=== PATIENT | male | born 1945 | race Caucasian/White ===

== ENCOUNTER 2017-03-26 12:00 | Outpatient (CLI) | payer MEDICARE ==
[~2017-03-26] VITALS: Ht 177.8 cm; Wt 94.5 kg
--- NOTE | ~2017-03-26 | OP ---
PATIENT NAME: ERIKA HEARD MEDICAL RECORD: [id number] :41 LOCATION:D.CAT ADMISSION DATE: SURGEON: RANDY THOMPSON MD DATE OF OPERATION: 03/26/2017 PREOPERATIVE DIAGNOSES: 1. End-of-life pacemaker generator. 2. Coronary artery disease. 3. Hypertension. 4. Sick sinus syndrome. 5. Atrial fibrillation. POSTOPERATIVE DIAGNOSES: 1. End-of-life pacemaker generator. 2. Coronary artery disease. 3. Hypertension. 4. Sick sinus syndrome. 5. Atrial fibrillation. PROCEDURE: Right subclavian vein pacemaker generator exchange. SURGEON: Randy Thompson MD REPORT OF PROCEDURE: The patient's right chest was prepped and draped in sterile fashion. A 15 mL of 1% lidocaine with epinephrine was infused into the surrounding tissues. A skin incision was made overlying the pacemaker and we dissected down using electrocautery until the pacemaker was in vision. We then dissected around the pacemaker and we were able to eviscerated out of the wound. The stitch holding it in place, was then excised. The pacemaker was detached from the 2 leads and the 2 leads were checked and noted to be appropriately functioning. The new Medtronic pacemaker was inserted, this was placed into the subcutaneous pouch and sutured down with an 0 Tycron. The subcutaneous tissues were irrigated out with antibiotic solution and the subcutaneous tissues were then reapproximated with interrupted 3-0 Vicryls and the skin was closed with running subcutaneous 5-0 Monocryl and dressed appropriately. COMPLICATIONS: None. CONDITION: Stable. ANESTHESIA: Local MAC. BLOOD LOSS: Minimal. TRANSINT:[id number] Voice Confirmation ID: [id number] DOCUMENT ID: [id number] RANDY THOMPSON MD CC: JAM TROY MD [id number] DICTATION DATE: 03/26/17 1440 CELL POURER: 03/26/17 2249 DEP CLI 03/26/17 [place] [id number] [place] [id number]
--- NOTE | ~2017-03-26 | HEMODYNAMI ---
PATIENT:ERIKA HEARD MEDICAL RECORD: [id number] : 41 LOCATION:DSueCAT ADMISSION DATE: 03/26/17 Generatedon:03/26/201714:39 Patient name: ERIKA HEARD Patient #: [id number] SSN: : 1945 Date of study: 03/26/2017 Page: Of Hemodynamic Procedure Report Patient Data Patient Demographics Procedure consent was obtained First Name: ERIKA Gender: Male Last Name: ORQUIDEA : 1945 Middle Initial: R Age: 72 year(s) Patient #: [id number] Race: Unknown Additional ID: [id number] Contact details [address]: [address] [place] [address] State: [place] City: [place] Zip code: [address] Past Medical History Allergies Allergen Reaction Date Comments Reported Penicillins 03/26/2017 Codeine 03/26/2017 Other allergy 03/26/2017 Biaxin Admission Admission Data Admission Date: 03/26/2017 Admission Time: 12:00 Lab Results Lab Result Date: 03/26/2017 Lab Result Time: 0:00 Biochemistry Name Units Result Min Max Creatinine mg/dl 1.6 --(----)-* 0.6 1.3 CBC Name Units Result Min Max Hemoglobin g/dl 13.7 --(*---)-- 13.5 17.5 Procedure Procedure Types Cath Procedure Diagnostic Procedure PPM/ICD Permanent Pacer Generator Exg. Miscellaneous Procedures Moderate Sedation up to 15 minutes Procedure Description Procedure Date Procedure Date: 03/26/2017 Procedure Start Time: 13:46 Procedure Staff Name Function Dom Jang MD Assisting physician Shaun Robles MD Performing Physician Regis Costa RT Scrub Jacky Dick RN Nurse Jessie Merchant RT Monitor Procedure Data Cath Procedure Estimated blood loss: 5 ml Procedure Medications Medication Administration Route Dosage Vancomycin I.V.P.B 1 g Vancomycin Topical 1 g Irrigation Fentanyl I.V. 50 mcg Versed I.V. 1 mg Fentanyl I.V. 50 mcg Versed I.V. 1 mg Hemodynamics Rest HGB: 13.7 (g/dl) Heart Rate: 70 (bpm) Snapshots Pre Cath Intra NCS Post Cath Vital Signs Time Heart Resp SPO2 NIBP (mmHg) Rhythm Pain Sedation Rate (ipm) (%) Status Level (bpm) 14:03:10 79 17 96 164/108(134) NSR 0 (11) 10(A) , No pain 14:07:30 72 17 97 167/110(149) NSR 0 (11) 10(A) , No pain 14:11:50 82 18 97 163/97(142) NSR 0 (11) 10(A) , No pain 14:16:13 78 18 92 149/106(135) NSR 0 (11) 10(A) , No pain 14:20:29 64 18 93 160/99(140) NSR 0 (11) 9(A) , No pain 14:24:49 87 17 90 150/78(122) NSR 0 (11) 9(A) , No pain 14:30:06 60 17 90 171/89(122) NSR 0 (11) 9(A) , No pain 14:34:14 60 18 92 140/95(138) NSR 0 (11) 9(A) , No pain 14:38:30 77 9 93 159/95(141) NSR 0 (11) 9(A) , No pain Medications Time Medication Route Dose Verified Delivered Reason Notes Effective ness by by 14:06:08 Vancomycin I.V.P.B 1 g Jacky Jacky Per Kapil Dick RN physician RN 14:06:17 Vancomycin Topical 1 g Jacky Jacky Per Irrigation Kapil Dick RN physician RN 14:19:42 Fentanyl I.V. 50 Jacky Jacky for [facility] Kapil Dick RN sedation RN 14:19:50 Versed I.V. 1 mg Jacky Jacky for Kapil Dick RN sedation RN 14:25:01 Fentanyl I.V. 50 Jacky Arevaloy for flex Dick RN sedation RN 14:25:07 Versed I.V. 1 mg Jacky Jacky for Kapil Dick RN sedation aerospace products sales engineer Log Time Note 13:40:02 Jacky Dick RN sent for patient. Start room use. 13:49:03 Time tracking: Regular hours 13:49:07 Plan of Care:Hemodynamics will remain stable., Cardiac rhythm will remain stable., Comfort level will be maintained., Respiratory function will remain adequate., Patient/ family verbilizes understanding of procedure., Procedure tolerated without complication., Recovers from procedure without complications.. 13:49:30 Medtronic Adapta PPM Dual Generator opened to sterile field. 13:56:12 Patient received from Pre/Post Procedure Room to [facility] 3 Alert and oriented. Tansferred to table in Supine position. 13:56:13 Warm blankets applied, and adryan hugger turned on for patient comfort. 13:56:13 Correct patient and procedure confirmed by team. 13:56:14 Signed procedure consent form obtained from patient. 13:56:15 ECG and BP/O2 sat monitors applied to patient. 13:56:16 Full Disclosure recording started 14:01:54 Vital chart was started 14:02:02 Rhythm: paced 14:02:15 H&P Date Dictated: 03/25/2017 Within 30 days and on chart., H&P Addendum completed by physician on day of procedure. (MUST COMPLETE FOR ALL OUTPATIENTS). 14:02:16 Pre-procedure instructions explained to patient. 14:02:16 Pre-op teaching completed and patient verbalized understanding. 14:02:18 Family in waiting room. 14:02:19 Patient NPO since Midnight. 14:02:28 Patient allergic to Penicillins 14:02:37 Patient allergic to Codeine 14:02:49 Patient allergic to Other allergyBiaxin 14:04:27 Baseline sample Acquired. 14:04:30 Is the patient allergic to Iodine/contrast media? No. 14:04:34 Patient diabetic? No. 14:04:38 Previous problem with sedation/anesthesia? No ? 14:04:55 Is patient on blood thinner?Yes 14:05:10 ACC The patient was administered the following blood thiners within the last 24 hours: ACCPlavix 14:05:14 Snore? Yes 14:05:15 Sleep apnea? No 14:05:16 Deviated septum? No 14:05:16 Opens mouth fully? Yes 14:05:17 Sticks out tongue? Yes 14:05:19 Airway obstruction? No ? 14:05:21 Dentures? No ? 14:05:28 Patient pain scale 0/10 ?. 14:05:33 IV patent on arrival in left hand with 0.9% NaCl at [facility]. 14:06:08 Vancomycin 1 g I.V.P.B was administered by Jacky Dick RN; Per physician; 14:06:17 Vancomycin Irrigation 1 g Topical was administered by Jacky Dick RN; Per physician; 14:06:47 Lab Result : Creatinine 1.6 mg/dl 14:06:47 Lab Result : Hemoglobin 13.7 g/dl 14:06:52 Lab results completed and on chart. 14:06:59 Right chest area was prepped with chlora-prep and draped in sterile fashion 14:07:00 Alarms reviewed by R. N. 14:07:00 Sharps counted by scrub and verified by R.N. 14:07:06 Use device set Pacemaker Set 14:07:07 Mepilex Dressing opened to sterile field. 14:07:07 2.0 Ticron Multipack opened to sterile field. 14:07:08 3.0 Vicryl Multipack [id number] opened to sterile field. 14:07:10 5.0 Monocryl PS2 [id number] opened to sterile field. 14:14:54 Medtronic indirect sales representative Titus Rodriguez present for procedure. 14:15:11 Pre sharps counted by scrub and verified by RN: Sutures: 14 Sponges: 5 Stick needles: 0 Skin needles: 2 Blade: 1 Cautery: 1 14:15:17 Grounding pad site Left thigh. 14:15:19 Grounding pad site free from injury. 14:19:34 Final Timeout: patient, procedure, and site verified with staff and physician. All members of the team are in agreement. 14:19:36 Right chest site verified by team. 14:19:38 Physical assessment completed. ASA score P 2 - A patient with mild systemic disease as per Dom Jang MD. 14:19:41 Sedation plan: IV Moderate Sedation Versed, Fentanyl 14:19:42 Fentanyl 50 mcg I.V. was administered by Jacky Dick RN; for sedation; 14:19:50 Versed 1 mg I.V. was administered by Jacky Dick RN; for sedation; 14:19:53 Lidocaine 1% w/epi and Bupivacaine 0.5% to right subclavicular area by Dom Jang MD. 14:21:48 Incision made to right subclavicular area. 14:21:53 Generator pocket made/opened. 14:24:45 PPM Dual was removed.. 14:24:50 Ventricular lead tested. 14:25:01 Fentanyl 50 mcg I.V. was administered by Jacky Dick RN; for sedation; 14:25:07 Versed 1 mg I.V. was administered by Jacky Dick RN; for sedation; 14:25:22 Atrial lead tested. 14::42 PPM Dual was attached to lead(s) and inserted into pocket. 14:28:22 Generator was sutured in place with 2-0 ticron. 14:28:42 Subcutaneous closure was completed with 3-0 vicryl. 14:30:27 Parameters-- Generator: Mode: AAIR<=>DDDR. Lower Rate: 60bpm. Upper Rate: 130bpm. 14:31:01 Parameters--Ventricular P/R Wave: 5.6mV. Current: 0.7mA; Threshold: 0.3V; Impedence: 732OHMS. 14:31:21 Parameters--Atrial P/R Wave: 5.3mV. Current: 0.9mA; Threshold: 0.4V; Impedence: 569OHMS. 14:33:37 Skin closure was completed with 5-0 monocryl. 14:34:18 Rt Chest incision was dressed with Mepilex dressing. 14:34:23 Procedure ended.(Physican Out) 14:34:37 Sharps counted by scrub and verified by R.N. 14:35:12 Post sharps counted by scrub and verified by RN: Sutures: 14 Sponges: 5 Stick needles: 0 Skin needles: 2 Blade: 1 Cautery: 1 14:35:21 Insertion/operative site no bleeding no hematoma. 14:35:38 Post-procedure physical assessment completed. ASA score P 2 - A patient with mild systemic disease as per Dom Jang MD. 14:35:42 Post procedure rhythm: unchanged. 14:35:49 Estimated blood loss: 5 ml 14:35:50 Post procedure instruction explained to patient.Patient verbalizes understanding. 14:35:50 Patient needs reinforcement of post procedure teaching. 14:36:18 Procedure type changed to Cath procedure, Diagnostic procedure, PPM/ICD, Permanent Pacer Generator Exg., Miscellaneous Procedures, Moderate Sedation up to 15 minutes 14:36:23 See physician's report for complete and final results. 14:36:54 Procedure and supply charges have been captured, reviewed, submitted and are correct. 14:37:26 Vital chart was started 14:38:36 Vital chart was stopped 14:38:40 Report given to Pre/Post Procedure Room. 14:38:44 Patient transfered to Pre/Post Procedure Room with Stretcher. 14:38:51 End room use (Document Last) Device Usage Item Name Manufacture Quantity Catalog Hospital Part Current Minimal Lo t# / Number Charge Number Stock Stock Serial# Code Medtronic Medtronic 1 [id number] 5 NW [id number] Adapta Ex p. PPM Dual 8- 28-18 Generator Mepilex Cardinal 1 [id number] [id number] [id number] [id number] 5 Dressing Health 2.0 Ethicon 4 [id number] 69574 786624 5 Ticron Multipack 3.0 Ethicon 1 [id number] 132158 144152 5 Vicryl Multipack [id number] 5.0 Ethicon 1 [id number] [id number] 937957 [id number] 5 Monocryl PS2 Y495G Signature Audit [place] Stage Time Signature Unsigned Intra-Procedure 03/26/2017 Jessie 2:39:03 PM Counts RT(R) Signatures Monitor : Jessie Signature : Counts RT Date : Time : [facility] [address] [place] [address]
[2017-03-26] MEDS ORDERED: TENORMIN25 MG PO (12:25)
[2017-03-26] MEDS ORDERED: BUPROPION XL300 MG PO (12:25)
[2017-03-26] MEDS ORDERED: TRICOR145 MG PO (12:26)
[2017-03-26] MEDS ORDERED: PLAVIX75 MG PO (12:26)
[2017-03-26] MEDS ORDERED: FLUTICASONE PRO16 GM NASAL (12:26)
[2017-03-26] MEDS ORDERED: ZESTRIL40 MG PO (12:27)
[2017-03-26] MEDS ORDERED: GLUCOTROL ER2.5 MG PO (12:27)
[2017-03-26] MEDS ORDERED: LEVOTHYROXINE112 MCG PO (12:27)
[2017-03-26] MEDS ORDERED: HYDROCODONE-APA1 TAB PO (12:28)
[2017-03-26] MEDS ORDERED: ATIVAN2 MG PO (12:28)
[2017-03-26] MEDS ORDERED: CARDURA4 MG PO (12:29)
[2017-03-26] MEDS ORDERED: RISPERDAL0.5 MG PO (12:29)
[2017-03-26] MEDS ORDERED: OMEPRAZOLE20 M1 PO (12:29)
[2017-03-26 12:35] VITALS: BP 144/92; Ht 177.8 cm; Wt 94.5 kg
[2017-03-26 12:50] LABS: HEMATOCRIT 42.5 % (42.0-54.0); HEMOGLOBIN 13.7 g/dL (13.5-17.5); MCH 29.6 pg (26.0-34.0); MCHC 32.2 g/dL (31.0-37.0); MCV 91.8 fL (80.0-100.0); MEAN PLATELET VOLUME 10.4 fL (7.4-10.4); RBC 4.63 10x6/uL (4.20-6.10); RDW 13.6 % (11.5-14.5); WBC 5.7 10x3/uL (4.8-10.8)
[2017-03-26 13:02] LABS: CALCIUM 8.9 mg/dL (8.5-10.1); CARBON DIOXIDE 24.9 mmol/L (21.0-32.0); CREATININE - SERUM 1.6 mg/dL (0.6-1.3); POTASSIUM - SERUM 3.9 mmol/L (3.5-5.1)
[2017-03-26 13:03] LABS: INR 1.05 (0.85-1.17); PROTIME 13.5 SECONDS (11.6-15.0)
[2017-03-26 13:04] LABS: APTT 28.1 SECONDS (22.8-39.4)
--- NOTE | 2017-03-26 15:05 | NUR ---
2L NC, NO RESP DISTRESS NOTED. DIE MOUNTER SHOWS NSR, PACED @ 60. RIGHT UPPER CHEST DRSG CDI, NO BLEEDING NOTED. VSS. NO C/O AT THIS TIME. WILL CONTINUE TO MONITOR.
--- NOTE | 2017-03-26 15:35 | NUR ---
RESTING IN BED, AT BEDSIDE. 2L NC, NO RESP DISTRESS NOTED. RIGHT UPPER CHEST DRESSING CDI. NO C/O AT THIS TIME. VSS.
--- NOTE | 2017-03-26 16:15 | NUR ---
LEFT HAND PIV D/C'D WITH CATHETER INTACT, BAND AID TO SITE. UP TO BEDSIDE TO GET DRESSED.
--- NOTE | 2017-03-26 16:30 | NUR ---
DISCHARGE INSTRUCTIONS GIVEN, PT AND FAMILY VERBALZIED UNDERSTANDING. TAKEN OUT VIA WHEELCHAIR BY CATH IT INFRASTRUCTURE CONSULTANT. LEFT FACILITY WITH AND ALL PERSONAL BELONGINGS.
== END 2017-03-26 16:30 | disposition home or self-care (01) ==
LOC: D.CATH 12:00
PROVIDERS: Internal Medicine Interventional Cardiology
DX: Z45.010 Encounter for checking and testing of cardiac pacemaker pulse generator [battery] (principal); I25.10 Atherosclerotic heart disease of native coronary artery without angina pectoris; I10 Essential (primary) hypertension; I49.5 Sick sinus syndrome; I48.91 Unspecified atrial fibrillation

== ENCOUNTER → 2018-12-25 13:59 | Outpatient (CLI) | payer MEDICARE ==
[2017-03-26 12:35] VITALS: BMI 29.9
[~2018-12-25 13:59] MED LIST: ATIVAN2 MG PO; BUPROPION XL300 MG PO; CARDURA4 MG PO; FLUTICASONE PRO16 GM NASAL; GLUCOTROL ER2.5 MG PO; HYDROCODONE-APA1 TAB PO; LEVOTHYROXINE112 MCG PO; OMEPRAZOLE20 M1 PO; PLAVIX75 MG PO; RISPERDAL0.5 MG PO; TENORMIN25 MG PO; TRICOR145 MG PO; ZESTRIL40 MG PO
== END | disposition home or self-care (01) ==
LOC: D.CT 13:59
DX: R31.9 Hematuria, unspecified (principal)

== ENCOUNTER → 2020-02-01 10:25 | Outpatient (CLI) | payer MEDICARE ==
[2017-03-26 12:35] VITALS: BMI 29.9
--- NOTE | ~2020-02-01 | ST ---
PATIENT:ERIKA HEARD MEDICAL RECORD: [id number] SEX: M LOCATION:[facility] ORDER #: ADMISSION DATE: 02/01/20 AGE OF PATIENT: 74 REFERRING PHYSICIAN: INTERPRETING PHYSICIAN: ANITA POSADAS MD DATE OF SERVICE: 02/01/2020 PROCEDURE: Nuclear stress test. INDICATION: Angina and coronary artery disease, hypertension, shortness of breath. He was exercised on standard Lexiscan protocol with 33 mCi of sestamibi injected at peak stress, 11 mCi used previously for rest images. FINDINGS: Gated SPECT reveals a dilated cardiomyopathy, ejection fraction markedly reduced at 23% with decreased thickening and brightening throughout the inferior segments. SPECT imaging Cardiolite was used as myocardial perfusion agent. There is a fixed perfusion defect inferiorly, apically, and septally compatible with previous inferoapical inferoseptal myocardial infarction. There is no evidence of reversible ischemia. The remaining segments are with homogeneous uptake at rest and stress. OVERALL IMPRESSION: This is an abnormal, but stable nuclear stress test showing only a previous inferoapical myocardial infarction. No ongoing ischemia. TRANSINT:[id number] Voice Confirmation ID: [id number] DOCUMENT ID: [id number] ANITA POSADAS MD CC: WILFRID BLOOD [id number] DICTATION DATE: 02/03/20 1424 WHITE LEAD FILTERER: 02/04/20 0133 DEP CLI 02/01/20 [place] [id number] [place] [address]
--- NOTE | ~2020-02-01 | EC ---
PATIENT:ERIKA HEARD DATE OF SERVICE: 02/01/20 SEX: M MEDICAL RECORD: [id number] DATE OF : 41 LOCATION:[facility] AGE OF PATIENT: 74 ADMISSION DATE: 02/01/20 REFERRING PHYSICIAN: INTERPRETING PHYSICIAN: ANITA ROBLES MD ECHOCARDIOGRAM REPORT ECHO CHARGES 4 ECHO COMPLETE Date: 02/01/20 CLINICAL DIAGNOSIS: ANGINA/BRAY/SOB H/O HTN/CAD/PACEMAKER PLACMENT ECHOCARDIOGRAPHIC MEASUREMENTS (adult normal given) AC root (d.<3.7cm) 3.9 cm LV Septum d (<1.2 cm> 1.6 cm Valve Excursion 1.8 cm LV Septum (systole) 2.0 cm Left Atria (s.<4.0cm> 4.8 cm LVPW d(<1.2cm) 1.5 cm RV (d.<2.3cm) 2.7 cm LVPW (sytole) 2.0 cm LV diastole(<5.6CM) 7.7 cm MV E-F(>70mm/sec) cm LV systole 6.3 cm LVOT Diameter 2.1 cm MV exc.(>10mm) cm Est.ejection fraction (50-75%) % DOPPLER: LVIT cm/sec A cm/sec E 143 cm/sec LA cm/sec RVSP 30.0 mmHg LVOT 79.0 cm/sec AOP1/2T m/s Asc. Ao 146 cm/sec RVOT 81.0 cm/sec RA cm/sec PA 106 cm/sec AV Gradient Peak 8.5 mmHg AV Mean 4.6 mmHg AV Area 2.1 cm MV Gradient Peak 9.0 mmHg MV Mean 2.5 mmHg MV Area cm COMMENTS: OP - HC Pediatric Physician: Cricket [employer] Reproductive Endocrinologist: 1 Dr. Robles TAPE# PACS Pericardial Effusion Y DATE OF SERVICE: 02/01/2020 FINDINGS: 1. Left ventricular chamber size is severely dilated. Left ventricular systolic function is severely reduced. Overall ejection fraction 15% to 20%. 2. Left atrium is enlarged at 4.8 cm. Right atrium and right ventricular chamber sizes are as well moderately enlarged. 3. Valvular structures have normal structure and motion. 4. Doppler interrogation reveals moderate mitral regurgitation, mild tricuspid regurgitation, no other valvular insufficiency or stenosis. Pulmonary systolic ECHOCARDIOGRAM REPORT [id number] ORQUIDEA,ERIKA R pressure estimated at 30 mmHg. 5. Trace pericardial effusion is present. This is not hemodynamically significant. No evidence of left ventricular thrombus. TRANSINT:[id number] Voice Confirmation ID: [id number] DOCUMENT ID: [id number] ANITA ROBLES MD CC: [id number] DICTATION DATE: 02/01/20 1459 SECURE SOFTWARE ASSESSOR: 02/02/20 0117 DEP CLI 02/01/20 [place] [id number] [place] [id number]
== END | disposition home or self-care (01) ==
LOC: D.HCCECHO 10:25
PROVIDERS: ATTEND Internal Medicine Interventional Cardiology
DX: I25.119 Atherosclerotic heart disease of native coronary artery with unspecified angina pectoris (principal)

== ENCOUNTER 2020-03-26 13:52 | Emergency (ER) | payer MEDICARE ==
[~2020-03-26] VITALS: Ht 177.8 cm; Wt 111.4 kg
[~2020-03-26 13:52] MED LIST changes: -RISPERDAL0.5 MG PO; +RISPERDAL1 MG PO
[2020-03-26 14:09] VITALS: Ht 177.8 cm; Wt 111.4 kg
[2020-03-26 15:15] LABS: BASOPHILS 0.6 % (0-2); EOSINOPHILS 2.7 % (0-7); HEMATOCRIT 39.8 % (42.0-54.0); HEMOGLOBIN 12.4 g/dL (13.5-17.5); IMMATURE GRANULOCYTES 0.2 % (0-5); LYMPHOCYTES 24.6 % (15-50); MCH 26.7 pg (26.0-34.0); MCHC 31.2 g/dL (31.0-37.0); MCV 85.6 fL (80.0-100.0); MEAN PLATELET VOLUME 9.6 fL (7.4-10.4); MONOCYTES 10.5 % (2-11); NEUTROPHILS 61.4 % (40-80); PLATELET COUNT 296 10x3/uL (130-400); RBC 4.65 10x6/uL (4.20-6.10); RDW 15.2 % (11.5-14.5); WBC 6.3 10x3/uL (4.8-10.8)
[2020-03-26 15:22] LABS: APTT 30.6 SECONDS (22.8-39.4); INR 1.05 (0.85-1.17); PROTIME 13.7 SECONDS (11.6-15.0)
[2020-03-26 15:28] LABS: CALC OSMOLALITY 279 mosm/kg (275-300); CALCIUM 8.9 mg/dL (8.5-10.1); CARBON DIOXIDE 26.2 mmol/L (21.0-32.0); CHLORIDE - SERUM 102 mmol/L (98-107); CREATININE - SERUM 1.3 mg/dL (0.6-1.3); GLUCOSE 103 mg/dL (74-106); POTASSIUM - SERUM 3.9 mmol/L (3.5-5.1); SODIUM 139 mmol/L (136-145); UREA NITROGEN 17 mg/dL (7-18); eGFR NON AFRICAN AMERICAN 57 mL/min (90-120)
[2020-03-26 16:04] LABS: ALBUMIN 3.7 g/dL (3.4-5.0); ALKALINE PHOSPHATASE 73 U/L (30-120); ALT (SGPT) 23 U/L (10-68); BILIRUBIN - TOTAL 0.62 mg/dL (0.2-1.3); CKMB 1.7 U/L (0.0-3.6); CREATINE KINASE 169 UL (21-232); PRO BNP 8737 pg/mL (0-450); PROTEIN - SERUM 7.4 g/dL (6.4-8.2); TROPONIN-I 0.029 ng/mL (0.000-0.060)
[2020-03-26] MEDS ORDERED: K-TAB10 MEQ PO (16:47)
[2020-03-26] MEDS ORDERED: COREG12.5 MG PO (16:47)
[2020-03-26] MEDS ORDERED: LASIX40 MG PO (16:47)
[2020-03-26 17:26] LABS: BILIRUBIN NEGATIVE (NEGATIVE); GLUCOSE NEGATIVE (NEGATIVE); KETONE NEGATIVE (NEGATIVE); NITRITE NEGATIVE (NEGATIVE); SPECIFIC GRAVITY 1.025 (1.005-1.020); UROBILINOGEN NORMAL (NORMAL)
[2020-03-26 17:31] LABS: BACTERIA FEW /hpf (NEGATIVE); EPITHELIAL CELLS 0-5 /hpf (0-5); RED CELLS - URINE 0-5 /hpf (0-5); WHITE CELLS - URINE 0-5 /hpf (NEGATIVE)
[2020-03-26 18:01] VITALS: BP 175/86
== END 2020-03-26 18:02 | disposition home or self-care (01) ==
LOC: D.ER 13:52
PROVIDERS: Emergency Medicine
DX: R06.00 Dyspnea, unspecified (principal); D64.9 Anemia, unspecified; I10 Essential (primary) hypertension; Z95.0 Presence of cardiac pacemaker; R53.1 Weakness; Z91.81 History of falling; R79.89 Other specified abnormal findings of blood chemistry

== ENCOUNTER 2020-03-29 06:45 | Inpatient (IN) | payer MEDICARE ==
[2020-03-29] VITALS (7 sets, daily range): BP systolic 118–167; BP diastolic 65–87; Ht 177.8 cm; Wt 94.1 kg
[~2020-03-29] VITALS: Ht 177.8 cm; Wt 94.1 kg
[~2020-03-29 06:45] MED LIST changes: +COREG12.5 MG PO; +K-TAB10 MEQ PO; +LASIX40 MG PO
[2020-03-29 08:11] LABS: BASOPHILS 0.1 % (0-2); EOSINOPHILS 0.3 % (0-7); HEMATOCRIT 42.7 % (42.0-54.0); IMMATURE GRANULOCYTES 0.2 % (0-5); LYMPHOCYTES 7.2 % (15-50); MCH 26.4 pg (26.0-34.0); MCHC 30.4 g/dL (31.0-37.0); MCV 86.6 fL (80.0-100.0); MEAN PLATELET VOLUME 9.9 fL (7.4-10.4); MONOCYTES 9.8 % (2-11); NEUTROPHILS 82.4 % (40-80); PLATELET COUNT 287 10x3/uL (130-400); RBC 4.93 10x6/uL (4.20-6.10); RDW 15.2 % (11.5-14.5)
[2020-03-29 08:24] LABS: CALC OSMOLALITY 281 mosm/kg (275-300); CHLORIDE - SERUM 102 mmol/L (98-107); CREATININE - SERUM 1.9 mg/dL (0.6-1.3); GLUCOSE 122 mg/dL (74-106); INR 1.17 (0.85-1.17); POTASSIUM - SERUM 4.4 mmol/L (3.5-5.1); PROTIME 14.8 SECONDS (11.6-15.0); SODIUM 139 mmol/L (136-145); UREA NITROGEN 22 mg/dL (7-18); eGFR NON AFRICAN AMERICAN 37 mL/min (90-120)
--- NOTE | 2020-03-29 08:30 | NUR ---
MOVED TO ROOM E2 FOR ISOLATION PRECAUTIONS R/T COVID-19. REPORT TO GOPI FITCH.
[2020-03-29 08:41] LABS: ALBUMIN 3.7 g/dL (3.4-5.0); ALKALINE PHOSPHATASE 78 U/L (30-120); ALT (SGPT) 22 U/L (10-68); BILIRUBIN - TOTAL 1.06 mg/dL (0.2-1.3); CKMB 2.4 U/L (0.0-3.6); CREATINE KINASE 744 UL (21-232); MAGNESIUM - SERUM 1.6 mg/dL (1.8-2.4); PRO BNP 3482 pg/mL (0-450); PROTEIN - SERUM 6.9 g/dL (6.4-8.2); TROPONIN-I 0.036 ng/mL (0.000-0.060)
[2020-03-29 08:55] LABS: BILIRUBIN NEGATIVE (NEGATIVE); GLUCOSE NEGATIVE (NEGATIVE); KETONE NEGATIVE (NEGATIVE); NITRITE NEGATIVE (NEGATIVE); SPECIFIC GRAVITY 1.025 (1.005-1.020); UROBILINOGEN NORMAL (NORMAL); WHITE CELLS - URINE 25-50 /hpf (NEGATIVE)
[2020-03-29 08:56] LABS: BACTERIA MANY /hpf (NEGATIVE); EPITHELIAL CELLS 0-5 /hpf (0-5)
[2020-03-29 09:06] LABS: C-REACTIVE PROTEIN 5.2 mg/dL (0.0-0.9)
--- NOTE | 2020-03-29 12:54 | NUR ---
RECEIVED PT FROM ER. PT IS AA AND CONFUSED. PT IS UP WITH MAX ASSIST. CALL LIGHT W/I REACH. SIDE RAIL UP X3. BED ALARM ON AND FUNCTIONING PROPERLY. NS AND LEVAQUIN CURRENTLY INFUSING VIA L.FOR PIV. RR EVEN AND UNLABORED ON RA. NO S/S OF DISTRESS NOTED. PT DENIES ANY NEEDS AT THIS TIME. WILL CTM.
[2020-03-29] MEDS ORDERED: BAYER CHEWABLE81 MG PO (13:02)
[2020-03-29] MEDS ORDERED: PROZAC10 MG PO (13:03)
[2020-03-29] MEDS ORDERED: NEURONTIN 300300 MG PO (13:03)
[2020-03-29] MEDS ORDERED: PRAVACHOL40 MG PO (13:04)
--- NOTE | 2020-03-29 19:34 | NUR ---
EVENING ROUNDS COMPLETE. PT LAYING IN BED. NO SIGNS OF DISTRESS. PT DENIES ANY PAIN OR NEEDS AT THIS TIME. CL IN REACH, BED IN LOWEST POSITION.
[2020-03-30 05:08] VITALS: BP 122/74
[2020-03-30 06:39] LABS: BASOPHILS 0.1 % (0-2); EOSINOPHILS 0.1 % (0-7); HEMATOCRIT 37.9 % (42.0-54.0); HEMOGLOBIN 11.5 g/dL (13.5-17.5); IMMATURE GRANULOCYTES 0.2 % (0-5); LYMPHOCYTES 7.7 % (15-50); MCH 26.3 pg (26.0-34.0); MCHC 30.3 g/dL (31.0-37.0); MCV 86.7 fL (80.0-100.0); MEAN PLATELET VOLUME 10.1 fL (7.4-10.4); MONOCYTES 9.9 % (2-11); PLATELET COUNT 273 10x3/uL (130-400); RBC 4.37 10x6/uL (4.20-6.10); RDW 15.4 % (11.5-14.5); WBC 14.1 10x3/uL (4.8-10.8)
[2020-03-30 07:03] LABS: ANION GAP 13.6 mmol/L (8-16); BILIRUBIN - TOTAL 0.91 mg/dL (0.2-1.3); CALCIUM 8.5 mg/dL (8.5-10.1); CREATININE - SERUM 2.1 mg/dL (0.6-1.3); PROTEIN - SERUM 6.7 g/dL (6.4-8.2)
[2020-03-30 07:06] LABS: POTASSIUM - SERUM 3.6 mmol/L (3.5-5.1)
[2020-03-30 09:00] VITALS: BP 156/77
--- NOTE | 2020-03-30 13:19 | HP ---
PATIENT: ERIKA HEARD MEDICAL RECORD: [id number] ACCOUNT: [id number] LOCATION:[address] : 41 ADMISSION DATE: 03/29/20 PCP: WILFRID BLOOD MD HISTORY AND PHYSICAL EXAMINATION REASON FOR ADMISSION: Multiple falls and shortness of breath. HISTORY OF PRESENT ILLNESS: The patient is a 75-year-old male with history of remote PTCA. He had increasing trouble with cough and shortness of breath for the last month or so. He saw his banking services clerk, Dr. Robles who performed an echocardiogram in January. At that time, his EF was approximately 10% to 20% with left ventricular enlargement. He then had his stress test that showed a fixed deformity considered nonischemic. Dr. Robles has been absent from work and had not been back to see him. He said he has been having multiple falls usually gets up and walks a distance, feels dizzy and then falls. He was in the Emergency Room yesterday for similar complaints, had a bruise left foot. Evaluation there by Dr. Glover resulted in discontinuing atenolol and starting on Coreg 12.5 b.i.d., Lasix 40 b.i.d. and have followup with me. The patient had another fall today and came back to the ED. He has had moderate exertional shortness of breath, 2-pillow orthopnea. Denies chest pain. He said he had a dry cough, but no fever. No sputum production. PAST MEDICAL HISTORY: Single-vessel CAD post-remote PTCA. Recent echo with ejection fraction of 15% to 20%, severely dilated left ventricle, left atrial enlargement at 4.8 cm. History of chronic pain syndrome due to lumbar disc disease post failed lumbar decompression remotely, BPH, cholelithiasis, colonic diverticulosis, history of chronic depression followed by psychiatrist in [place], type 2 diabetes mellitus, EASON, essential hypertension, hypothyroidism, remote retinal detachment, lumbar spinal stenosis. PAST SURGICAL HISTORY: PTCA LAD 04/13/2008, negative angiogram May 2010, paroxysmal AFib, chronic renal insufficiency, and sick sinus syndrome with pacemaker. Pacemaker placement, PTCA times x1 - 03/2008, and lumbar decompression. He had retinal detachment repair. SOCIAL HISTORY: Nonsmoker and nondrinker. He did smoke in the past. He is and lives with his . ALLERGIES: BIAXIN, CODEINE, DOXYCYCLINE, AND PENICILLIN. CURRENT MEDICATIONS: Coreg 12.5 mg p.o. b.i.d., Lasix 40 mg p.o. b.i.d., potassium ER 10 mEq p.o. b.i.d., Glipizide ER 2.5 mg daily, fluticasone 1 nasal spray each nostril daily, [place] 10/325 one t.i.d. for back pain, pravastatin 80 mg p.o. at bedtime, levothyroxine 0.125 p.o. q.a.m. a.c. breakfast, omeprazole 20 mg p.o. daily, clopidogrel 75 mg p.o. daily, amlodipine 2.5 mg daily, lisinopril 40 mg daily, aspirin 81 mg a day, Sildenafil 20 mg 2-3 p.r.n. as needed, Risperdal 0.5 mg 2 tabs by mouth daily, Neurontin 300 mg p.o. t.i.d., lorazepam 2 mg 1 at 2:00 p.m. and 2 at bedtime as needed for anxiety and sleep, Wellbutrin-XL 300 mg p.o. daily, doxazosin 4 mg p.o. b.i.d., and fluoxetine 10 mg p.o. daily. FAMILY HISTORY: Mother , had CAD. REVIEW OF SYSTEMS: CONSTITUTIONAL: Fatigue without fever. HISTORY AND PHYSICAL [id number] ERIKA HEARD HEENT: No recent visual change, sinus congestion, or sore throat. RESPIRATORY: Has intermittent cough for the last several weeks, nonproductive. Denies fever, hemoptysis, or chest pain. GASTROINTESTINAL: No nausea, vomiting, change in stools. GENITOURINARY: Nocturia twice nightly. No dysuria. ENDOCRINE: Denies polyuria, polydipsia, heat or cold intolerance. NEUROLOGIC: No history of stroke, TIA, or vascular headaches. He has wide-based gait and requires a cane. Fall as mentioned above. INTEGUMENT: No rash or itching. PSYCHIATRIC: Admits to chronically depressed mood. Clinically stable. No suicidal thoughts. PHYSICAL EXAMINATION: VITAL SIGNS: Temperature is 98 degrees Fahrenheit, respirations are 18, blood pressure 126/74 with a sat of 90% on room air. HEENT: Normocephalic. Eyes are clear. Pupils are somewhat pinpoint, but reactive. Oropharynx unremarkable. NECK: No bruits or masses. CHEST WALL: Nontender. CHEST: Clear with fine crackles in the bases on inspiration. No E to A change. HEART: Regular rate and rhythm. ABDOMEN: Soft, nontender. No organomegaly or bruits. GENITOURINARY: Deferred. EXTREMITIES: He has some bruising on the dorsal left foot. No pain on movement of the toes. He can flex his ankle without difficulty. Right foot is unremarkable. He has only 1+ mild pedal edema bilaterally. Limited lumbar range of motion. Knees show mild crepitus to flexion and extension. Gait was not tested. NEUROLOGICAL: Oriented to person, place, and time. Cranial nerves intact. Gait as mentioned wide based and unsteady. LABORATORY DATA: Shows a CRP of 5.2. ProBNP of 3482. TSH is 2.70. BUN and creatinine 22 and 1.9. His baseline creatinine is 1.4. Glucose 122 nonfasting. Magnesium low at 1.6. CPK normal. Liver functions normal. Troponin is normal. Potassium is 4.4. UA shows 25-50 white cells, 5-10 red cells, 2+ leukocyte esterase, 5-10 calcium oxalate stones, many bacteria. White count 16,000 with left shift, H and H is 13.8 and 42.7 respectively. EKG shows chronic right bundle branch block with no acute changes. Chest x-ray showed questionable basilar atelectasis versus less likely pneumonia. ASSESSMENT: 1. Frequent falls, most likely due to bilateral lower extremity weakness and LCS. 2. Congestive heart failure, symptomatic with exertional BRAY. 3. Urinary tract infection with leukocytosis. 4. Basilar atelectasis, doubt pneumonia, currently. 5. Chronic pain syndrome. 6. History of paroxysmal AFib. 7. Congestive cardiomyopathy with systolic congestive heart failure, chronic depression, BPH, chronic renal insufficiency, hypothyroidism, and diabetes mellitus. PLAN: The patient will be admitted. Will be placed on IV Rocephin. Culture - his blood and urine. HISTORY AND PHYSICAL [id number] ERIKA HEARD The patient is somewhat overmedicated as well. We will decrease his dose of Neurontin for start, have PT consult and see how he does. Further workup pending clinical course. TRANSINT:[id number] Voice Confirmation ID: [id number] DOCUMENT ID: [id number] WILFRID BLOOD MD at 1319 CC: [id number] DICTATION DATE: 03/29/20 1634 RESEARCH SCIENTIST: 03/29/20 1843 ADM IN [facility] [address] [place] [address]
[2020-03-30 16:00] VITALS: BP 155/75
[2020-03-30 20:00] VITALS: BP 181/96
[2020-03-31 04:00] VITALS: BP 161/83; BP 186/82
[2020-03-31 05:31] LABS: BASOPHILS 0.2 % (0-2); EOSINOPHILS 0.9 % (0-7); HEMATOCRIT 39.2 % (42.0-54.0); IMMATURE GRANULOCYTES 0.4 % (0-5); MCH 26.4 pg (26.0-34.0); MCHC 30.6 g/dL (31.0-37.0); MCV 86.3 fL (80.0-100.0); MEAN PLATELET VOLUME 9.9 fL (7.4-10.4); MONOCYTES 8.5 % (2-11); PLATELET COUNT 276 10x3/uL (130-400); RBC 4.54 10x6/uL (4.20-6.10); RDW 15.5 % (11.5-14.5); WBC 11.1 10x3/uL (4.8-10.8)
[2020-03-31 06:10] LABS: ANION GAP 16.8 mmol/L (8-16); CALCIUM 8.6 mg/dL (8.5-10.1); CARBON DIOXIDE 24.8 mmol/L (21.0-32.0); CREATININE - SERUM 1.6 mg/dL (0.6-1.3); POTASSIUM - SERUM 3.6 mmol/L (3.5-5.1)
[2020-03-31 09:23] VITALS: BP 189/83
[2020-03-31 12:00] VITALS: BP 154/71
[2020-03-31 20:00] VITALS: BP 177/84
[2020-04-01] VITALS: BP 168/79
[2020-04-01 04:00] VITALS: BP 168/94
[2020-04-01 05:42] LABS: BASOPHILS 0.2 % (0-2); EOSINOPHILS 2.5 % (0-7); HEMATOCRIT 43.2 % (42.0-54.0); IMMATURE GRANULOCYTES 0.3 % (0-5); LYMPHOCYTES 15.7 % (15-50); MCH 26.4 pg (26.0-34.0); MCHC 30.1 g/dL (31.0-37.0); MCV 87.6 fL (80.0-100.0); MEAN PLATELET VOLUME 10.4 fL (7.4-10.4); MONOCYTES 9.8 % (2-11); NEUTROPHILS 71.5 % (40-80); RBC 4.93 10x6/uL (4.20-6.10); RDW 15.5 % (11.5-14.5); WBC 8.7 10x3/uL (4.8-10.8)
[2020-04-01 06:12] LABS: PLATELET COUNT 353 10x3/uL (130-400)
[2020-04-01 06:29] LABS: ANION GAP 14.9 mmol/L (8-16); CARBON DIOXIDE 25.4 mmol/L (21.0-32.0); CREATININE - SERUM 1.6 mg/dL (0.6-1.3); POTASSIUM - SERUM 3.3 mmol/L (3.5-5.1)
--- NOTE | 2020-04-01 08:00 | NUR ---
PT RECEIVED SLEEPING IN BED, AROUSED TO VOICE. STATES DR BLOOD BEEN HERE ALREADY AND AWAITING REHAB SCREEN. UP IN CHAIR FOR BREAKFAST.
[2020-04-01 09:25] VITALS: BP 154/96
[2020-04-01 12:00] VITALS: BP 136/71
--- NOTE | 2020-04-01 12:20 | MORECARE ---
CASE MANAGEMENT DISCHARGE SUMMARY PATIENT: ERIKA HEARD UNIT: [id number] ADM DATE: 03/29/20 AGE: 75 : 41 SEX: M ROOM/BED: D.2134 AUTHOR: KALEE VEGA PHYSICIAN: REFERRING PHYSICIAN: WILFRID BLOOD MD DATE OF SERVICE: 04/01/20 Discharge Plan Patient Name: ERIKA HEARD [facility] [facility] 1945 Planned Disposition: Inpatient Rehab Facility Anticipated Discharge Date: 04/01/20 Discharge Date: Expected LOS: 3 Initial Reviewer: [email or web address] Initial Review Date: 03/29/2020 Generated: 04/01/20 1:19 pm Patient Name: ERIKA HEARD Page [phone] at 1220 All edits/amendments must be made on the electronic document DICTATION DATE: 04/01/20 1219 SHIPPING AND RECEIVING WEIGHER: GRACIA 04/01/20 1219 RPT#: [id number] DC DATE: STATUS: ADM IN [facility] [address] [place] [address] END OF REPORT
--- NOTE | 2020-04-01 12:27 | MORECARE ---
CASE MANAGEMENT DISCHARGE SUMMARY PATIENT: ERIKA HEARD UNIT: [id number] ADM DATE: 03/29/20 AGE: 75 : 43 SEX: M ROOM/BED: D.2134 AUTHOR: KALEE VEGA PHYSICIAN: REFERRING PHYSICIAN: WILFRID BLOOD MD DATE OF SERVICE: 04/01/20 Discharge Plan Patient Name: ERIKA HEARD [facility] [facility] 1945 Planned Disposition: Inpatient Rehab Facility Anticipated Discharge Date: 04/01/20 Discharge Date: Expected LOS: 3 Initial Reviewer: [id number] Initial Review Date: 03/29/2020 Generated: 04/01/20 1:26 pm External Providers External Provider: [facility] ([employer]) [facility] Contact Date: Service Request Date: Service Type: Resolution: Reviewer: Comments: Last DP export: 04/01/20 11:20 am Patient Name: ERIKA HEARD Page 13601 at 1227 All edits/amendments must be made on the electronic document DICTATION DATE: 04/01/20 1226 RUBBER VULCANIZING MACHINE OPERATOR: GRACIA 04/01/20 1226 RPT#: [id number] DC DATE: STATUS: ADM IN [facility] [address] [place] [address] END OF REPORT
--- NOTE | 2020-04-01 13:09 | MORECARE ---
CASE MANAGEMENT DISCHARGE SUMMARY PATIENT: ERIKA DEVINE UNIT: [id number] ADM DATE: 03/29/20 AGE: 75 : 43 SEX: M ROOM/BED: D.2134 AUTHOR: KALEE VEGA PHYSICIAN: REFERRING PHYSICIAN: WILFRID MARLEY MD DATE OF SERVICE: 04/01/20 Discharge Plan Patient Name: ERIKA DEVINE Facility: [facility]:[place] : 1945 Planned Disposition: Inpatient Rehab Facility Anticipated Discharge Date: 04/01/20 Discharge Date: Expected LOS: 3 Initial Reviewer: [id number] Initial Review Date: 03/29/2020 Generated: 04/01/20 2:09 pm Comments DCP- Discharge Planning Updated by [id number]: Dunia Kilpatrick on 04/01/20 12:[address] CM met with patient regarding DC needs/plans. Patient is in agreement with interview. Patient is A/O X3. PCP: / . [facility] DME: patient has ordered an upright walker, privately. Patient states he is independent with ADL's and his Estela, will assist PRN. Emergency contact: Estela Devine () [phone]. Denies use of community resources, denies need for [facility], SNF. [facility]. [facility] and [facility] IMM signed by patient.. Denies hospitalization within past 30 days. CM faxed required information to Didi Gonzalez phone #[phone], , also contacted Didi via phone. Patient voices no other needs at this time. DCPIA - Discharge Planning Initial Assessment Updated by [id number]: Dunia Kilpatrick on 04/01/20 1:04 pm * Is the patient Alert and Oriented? Yes * PCP Dr. Marley * Pharmacy [facility] * Preadmission Environment Home with Family * ADLs Independent * Equipment Other * Other Equipment Upright walker * List name and contact numbers for known caregivers / representatives who currently or will assist patient after discharge: Estela Devine () [phone] * Verbal permission to speak to the caregivers and representatives has been obtained from the patient. Yes * Community resources currently utilized None * Please name any agencies selected above. [facility] * Additional services required to return to the preadmission environment? Yes * Can the patient safely return to the preadmission environment? No * Has this patient been hospitalized within the prior 30 days at any hospital? No Coverage Notice Reviewer: [id number] Humza Kilpatrick Notice Issued Date-Time: 04/01/2020 12:31 Notice Type: Patient Choice Letter Notice Delivered To: Patient Relationship to Patient: Self Senior Software Engineer Name: Kushal Matute Delivery Method: HAND - Hand Delivered Estephania Days: Prior Verbal Notification: Recipient Understood Notice: Yes Recipient Signature: Yes Med Rec Note Co-signed by Attending: Coverage Notice Comment: Patient Choice for [facility] Reviewer: [id number] Humza Kilpatrick Notice Issued Date-Time: 04/01/2020 12:31 Notice Type: IM Discharge Notice Notice Delivered To: Patient Relationship to Patient: Self Senior Software Engineer Name: Kushal Devine Delivery Method: HAND - Hand Delivered Estephania Days: Prior Verbal Notification: Recipient Understood Notice: Yes Recipient Signature: Yes Med Rec Note Co-signed by Attending: Coverage Notice Comment: DC IMM signed by patient. Last DP export: 04/01/20 11:27 am Patient Name: ERIKA DEVINE Page [phone] at 1309 All edits/amendments must be made on the electronic document DICTATION DATE: 04/01/20 1309 BUSINESS REPORTER: GRACIA 04/01/20 1309 RPT#: [id number] DC DATE: STATUS: ADM IN [facility] [address] [place] [address] END OF REPORT
--- NOTE | 2020-04-01 16:01 | NUR ---
OT NOTE: PT COMPLETED SUPINE TO SIT WITH CGA. PT COMPLETED SIT TO STAND WITH CGA. PT COMPLETED BED TO SINK ADL MOB WITH CGA. PT COMPLETED HAND AND FACE HYGEINE AT SINK LEVEL WITH CGA. [phone] THANK YOU,MARIA DOLORES NAVARRO
[2020-04-01 16:30] VITALS: BP 176/86
[2020-04-01 20:00] VITALS: BP 153/80
--- NOTE | 2020-04-01 23:41 | NUR ---
RECIEVED UP IN BED WITH EYES OPEN AND TV ON. ALERT AND ORIENTED X4. UP AD TIM TO B/R. NO IV AT THIS TIME AND REMAINS ON RA. DENIES ANY NEEDS AT THIS TIME.
[2020-04-02 00:01] VITALS: BP 160/76
[2020-04-02 04:00] VITALS: BP 175/76
[2020-04-02 08:03] VITALS: BP 176/93
--- NOTE | 2020-04-02 10:12 | MORECARE ---
CASE MANAGEMENT DISCHARGE SUMMARY PATIENT: ERIKA DEVINE UNIT: [id number] ADM DATE: 03/29/20 AGE: 75 : 43 SEX: M ROOM/BED: D.2134 AUTHOR: KALEE VEGA PHYSICIAN: REFERRING PHYSICIAN: WILFRID MARLEY MD DATE OF SERVICE: 04/02/20 Discharge Plan Patient Name: ERIKA DEVINE Facility: [facility]:[place] : 1945 Planned Disposition: Inpatient Rehab Facility Anticipated Discharge Date: 04/01/20 Discharge Date: Expected LOS: 3 Initial Reviewer: [id number] Initial Review Date: 03/29/2020 Generated: 04/02/20 11:12 am Comments DCP- Discharge Planning Updated by [id number]: Naomi Kumar on 04/02/20 9:[address] CM RECEIVED MESSAGE FROM ALLIE REGARDING ADMISSION TODAY AT [facility] IF ORDERS RECEIVED. HAD CALLED AND LEFT VOICE MAIL MESSAGE FOR ANDRE EARLIER THIS AM AFTER SPEAKING W/ PRIMARY NURSE, JOSE. JOSE WILL CALL DR MARLEY. WILL CONTACT ALLIE AT [facility] WHEN ORDERS RECEIVED. DCP- Discharge Planning Updated by [id number]: Dunia Kilpatrick on 04/01/20 12:[address] CM met with patient regarding DC needs/plans. Patient is in agreement with interview. Patient is A/O X3. PCP: / . [facility]. DME: patient has ordered an upright walker, privately. Patient states he is independent with ADL's and his Estela, will assist PRN. Emergency contact: Estela Devine () [phone]. Denies use of community resources, denies need for [facility], SN[facility]. [facility]. [facility] and DC IMM signed by patient.. Denies hospitalization within past 30 days. CM faxed required information to Andre Gonzalez phone #[phone], , also contacted Andre via phone. Patient voices no other needs at this time. DCPIA - Discharge Planning Initial Assessment Updated by [id number]: Dunia Kilpatrick on 04/01/20 1:04 pm * Is the patient Alert and Oriented? Yes * PCP Dr. Marley * Pharmacy [facility] * Preadmission Environment Home with Family * ADLs Independent * Equipment Other * Other Equipment Upright walker * List name and contact numbers for known caregivers / representatives who currently or will assist patient after discharge: Estela Devine () [phone] * Verbal permission to speak to the caregivers and representatives has been obtained from the patient. Yes * Community resources currently utilized None * Please name any agencies selected above. [facility] * Additional services required to return to the preadmission environment? Yes * Can the patient safely return to the preadmission environment? No * Has this patient been hospitalized within the prior 30 days at any hospital? No Coverage Notice Reviewer: [id number] Humza Kilpatrick Notice Issued Date-Time: 04/01/2020 12:31 Notice Type: Patient Choice Letter Notice Delivered To: Patient Relationship to Patient: Self Tariff Inspector Name: Kushal Matute Delivery Method: HAND - Hand Delivered Estephania Days: Prior Verbal Notification: Recipient Understood Notice: Yes Recipient Signature: Yes Med Rec Note Co-signed by Attending: Coverage Notice Comment: [facility] Reviewer: [id number] Humza Kilpatrick Notice Issued Date-Time: 04/01/2020 12:31 Notice Type: IM Discharge Notice Notice Delivered To: Patient Relationship to Patient: Self Tariff Inspector Name: Kushal Devine Delivery Method: HAND - Hand Delivered Estephania Days: Prior Verbal Notification: Recipient Understood Notice: Yes Recipient Signature: Yes Med Rec Note Co-signed by Attending: Coverage Notice Comment: DC IMM signed by patient. Last DP export: 04/01/20 12:09 pm Patient Name: ERIKA DEVINE Page [phone] at 1012 All edits/amendments must be made on the electronic document DICTATION DATE: 04/02/20 1012 SURPLUS PROPERTY DISPOSAL AGENT: GRCAIA 04/02/20 1012 RPT#: [id number] DC DATE: STATUS: ADM IN [facility] [address] [place] [address] END OF REPORT
[2020-04-02 11:56] VITALS: BP 122/69
[2020-04-02] MEDS ORDERED: LEVOFLOXACIN500 MG PO (14:04)
[2020-04-02] MEDS ORDERED: FLOMAX0.4 MG PO (14:05)
[2020-04-02] MEDS ORDERED: NORVASC5 MG PO (14:06)
[2020-04-02] MEDS ORDERED: ENTRESTO 24 MG1 EACH PO (14:07)
[2020-04-02] MEDS ORDERED: GABAPENTIN100 MG PO (14:08)
[2020-04-02] MEDS ORDERED: LASIX20 MG PO (14:09)
--- NOTE | 2020-04-02 15:22 | MORECARE ---
CASE MANAGEMENT DISCHARGE SUMMARY PATIENT: ERIKA DEVINE UNIT: [id number] ADM DATE: 03/29/20 AGE: 75 : 43 SEX: M ROOM/BED: D.2134 AUTHOR: KALEE VEGA PHYSICIAN: REFERRING PHYSICIAN: WILFRID MARLEY MD DATE OF SERVICE: 04/02/20 Discharge Plan Patient Name: ERIKA DEVINE Facility: [facility]:[address] : 1945 Planned Disposition: Inpatient Rehab Facility Anticipated Discharge Date: 04/01/20 Discharge Date: Expected LOS: 3 Initial Reviewer: [id number] Initial Review Date: 03/29/2020 Generated: 04/02/20 4:22 pm Comments DCP- Discharge Planning Updated by [id number]: Naomi Kumar on 04/02/20 9:[address] CM RECEIVED MESSAGE FROM ALLIE REGARDING ADMISSION TODAY AT [facility] IF ORDERS RECEIVED. HAD CALLED AND LEFT VOICE MAIL MESSAGE FOR ANDRE EARLIER THIS AM AFTER SPEAKING W/ PRIMARY NURSE, JOSE. JOSE WILL CALL DR MARLEY. WILL CONTACT ALLIE AT [facility] WHEN ORDERS RECEIVED. DCP- Discharge Planning Updated by [id number]: Dunia Kilpatrick on 04/01/20 12:[address] CM met with patient regarding DC needs/plans. Patient is in agreement with interview. Patient is A/O X3. PCP: / . [facility]. DME: patient has ordered an upright walker, privately. Patient states he is independent with ADL's and his Estela, will assist PRN. Emergency contact: Estela Devine () [phone]. Denies use of community resources, denies need for [facility], SNF. [facility]. [facility] and [facility] IMM signed by patient.. Denies hospitalization within past 30 days. CM faxed required information to Andre Gonzalez phone #[phone], , also contacted Andre via phone. Patient voices no other needs at this time. DCPIA - Discharge Planning Initial Assessment Updated by [id number]: Dunia Kilpatrick on 04/01/20 1:04 pm * Is the patient Alert and Oriented? Yes * PCP Dr. Marley * [facility]acy [facility] * Preadmission Environment Home with Family * ADLs Independent * Equipment Other * Other Equipment Upright walker * List name and contact numbers for known caregivers / representatives who currently or will assist patient after discharge: Estela Devine () [phone] * Verbal permission to speak to the caregivers and representatives has been obtained from the patient. Yes * Community resources currently utilized None * Please name any agencies selected above. [facility] * Additional services required to return to the preadmission environment? Yes * Can the patient safely return to the preadmission environment? No * Has this patient been hospitalized within the prior 30 days at any hospital? No Coverage Notice Reviewer: [id number] Humza Kilpatrick Notice Issued Date-Time: 04/01/2020 12:31 Notice Type: Patient Choice Letter Notice Delivered To: Patient Relationship to Patient: Self Box Feeder Name: Kushal Matute Delivery Method: HAND - Hand Delivered Estephania Days: Prior Verbal Notification: Recipient Understood Notice: Yes Recipient Signature: Yes Med Rec Note Co-signed by Attending: Coverage Notice Comment: [facility] Reviewer: [id number] Humza Kilpatrick Notice Issued Date-Time: 04/01/2020 12:31 Notice Type: IM Discharge Notice Notice Delivered To: Patient Relationship to Patient: Self Box Feeder Name: Kushal Devine Delivery Method: HAND - Hand Delivered Estephania Days: Prior Verbal Notification: Recipient Understood Notice: Yes Recipient Signature: Yes Med Rec Note Co-signed by Attending: Coverage Notice Comment: DC IMM signed by patient. Last DP export: 04/02/20 9:12 am Patient Name: ERIKA DEVINE Page [id number] at 1522 All edits/amendments must be made on the electronic document DICTATION DATE: 04/02/20 1522 PURCHASING COORDINATOR: GRACIA 04/02/20 152 RPT#: [id number] DC DATE: STATUS: ADM IN [facility] [address] [place] [address] END OF REPORT
--- NOTE | 2020-04-02 15:30 | MORECARE ---
CASE MANAGEMENT DISCHARGE SUMMARY PATIENT: ERIKA DEVINE UNIT: [id number] ADM DATE: 03/29/20 AGE: 75 : 43 SEX: M ROOM/BED: D.5004 AUTHOR: KALEE VEGA PHYSICIAN: REFERRING PHYSICIAN: WILFRID MARLEY MD DATE OF SERVICE: 04/02/20 Discharge Plan Patient Name: ERIKA DEVINE Facility: [facility]:[place] : 1945 Planned Disposition: Inpatient Rehab Facility Anticipated Discharge Date: 04/01/20 Discharge Date: Expected LOS: 3 Initial Reviewer: [id number] Initial Review Date: 03/29/2020 Generated: 04/02/20 4:30 pm Comments DCP- Discharge Planning Updated by [email or web address]: Naomi Kumar on 04/02/20 2:[address] ORDERS OBTAINED AFTER REPEAT TC TO DR CULLEN. TC TO [facility]. NURSE , MARIA DEL CARMEN, ATTEMPTING TO FAX DISCHARGE SUMMARY, MED LIST AND DISCHARGE INSTRUCTIONS TO [facility] AT [phone]. ATTEMPTED UNSUCCESSFULLY X3. TC TO [place]. VERIFIED THE FAX NUMBER. [phone] SHE CAME TO ER ENTRANCE OF [facility] TO OBTAIN THE PACKET. PLAN FOR DISCHARGE TODAY. DCP- Discharge Planning Updated by [id number]: Naomi Kumar on 04/02/20 9:[address] CM RECEIVED MESSAGE FROM ALLIE REGARDING ADMISSION TODAY AT [facility] IF ORDERS RECEIVED. HAD CALLED AND LEFT VOICE MAIL MESSAGE FOR ANDRE EARLIER THIS AM AFTER SPEAKING W/ PRIMARY NURSE, JOSE. JOSE WILL CALL DR MARLEY. WILL CONTACT ALLIE [facility] WHEN ORDERS RECEIVED. DCP- Discharge Planning Updated by [id number]: Dunia Kilpatrick on 04/01/20 12:[address] CM met with patient regarding DC needs/plans. Patient is in agreement with interview. Patient is A/O X3. PCP: / . [facility]. DME: patient has ordered an upright walker, privately. Patient states he is independent with ADL's and his Estela, will assist PRN. Emergency contact: Estela Devine () [phone]. Denies use of community resources, denies need for [facility], SNF. Patient request information be sent to [facility] for evaluation. [facility] choice for [facility] and DC IMM signed by patient.. Denies hospitalization within past 30 days. CM faxed required information to Andre Gonzalez phone #[phone], , also contacted Andre via phone. Patient voices no other needs at this time. DCPIA - Discharge Planning Initial Assessment Updated by [id number]: Dunia Kilpatrick on 04/01/20 1:04 pm * Is the patient Alert and Oriented? Yes * PCP Dr. Marley * Pharmacy [facility] * Preadmission Environment Home with Family * ADLs Independent * Equipment Other * Other Equipment Upright walker * List name and contact numbers for known caregivers / representatives who currently or will assist patient after discharge: Estela Devine () [phone] * Verbal permission to speak to the caregivers and representatives has been obtained from the patient. Yes * Community resources currently utilized None * Please name any agencies selected above. [facility] * Additional services required to return to the preadmission environment? Yes * Can the patient safely return to the preadmission environment? No * Has this patient been hospitalized within the prior 30 days at any hospital? No Coverage Notice Reviewer: [id number] Humza Kilpatrick Notice Issued Date-Time: 04/01/2020 12:31 Notice Type: Patient Choice Letter Notice Delivered To: Patient Relationship to Patient: Self Paper Testing Supervisor Name: Kushal Matute Delivery Method: HAND - Hand Delivered Estephania Days: Prior Verbal Notification: Recipient Understood Notice: Yes Recipient Signature: Yes Med Rec Note Co-signed by Attending: Coverage Notice Comment: Patient Choice for [facility] Reviewer: [id number] Humza Kilpatrick Notice Issued Date-Time: 04/01/2020 12:31 Notice Type: IM Discharge Notice Notice Delivered To: Patient Relationship to Patient: Self Paper Testing Supervisor Name: Kushal Devine Delivery Method: HAND - Hand Delivered Estephania Days: Prior Verbal Notification: Recipient Understood Notice: Yes Recipient Signature: Yes Med Rec Note Co-signed by Attending: Coverage Notice Comment: DC IMM signed by patient. Last DP export: 04/02/20 2:22 pm Patient Name: ERIKA DEVINE Page [phone] at 1530 All edits/amendments must be made on the electronic document DICTATION DATE: 04/02/201529 CANE FLUME WATCHMAN: GRACIA 04/02/201529 RPT#: [id number] DC DATE: STATUS: ADM IN [facility] [address] [place] [address] END OF REPORT
--- NOTE | 2020-04-02 15:58 | NUR ---
REPORT CALLED TO ALLISON NGUYỄN AT [facility]. PT UPDATED ROOM NUMBER ([id number]). HE IS CALLING NOW.
--- NOTE | 2020-04-04 13:22 | MORECARE ---
CASE MANAGEMENT DISCHARGE SUMMARY PATIENT: ERIKA DEVINE UNIT: [id number] ADM DATE: 03/29/20 AGE: 75 : 43 SEX: M ROOM/BED: D.8014 AUTHOR: GARY,DOC PHYSICIAN: REFERRING PHYSICIAN: WILFRID MARLEY MD DATE OF SERVICE: 04/04/20 Discharge Plan Patient Name: ERIKA DEVINE Facility: [facility]:[place] : 1945 Planned Disposition: Inpatient Rehab Facility Anticipated Discharge Date: 04/01/20 Discharge Date: 04/02/2020 Expected LOS: 3 Initial Reviewer: [id number] Initial Review Date: 03/29/2020 Generated: 04/04/20 2:22 pm Comments DCP- Discharge Planning Updated by [id number]: Naomi Kumar on 04/02/20 2:[address] ORDERS OBTAINED AFTER REPEAT TC TO DR CULLEN. [facility] NURSE , MARIA DEL CARMEN, ATTEMPTING TO FAX DISCHARGE SUMMARY, MED LIST AND DISCHARGE INSTRUCTIONS TO [facility] AT [phone]. ATTEMPTED UNSUCCESSFULLY X3. TC TO [place]. VERIFIED THE FAX NUMBER. [phone] SHE CAME TO ER ENTRANCE OF [facility] TO OBTAIN THE PACKET. PLAN FOR DISCHARGE TODAY. DCP- Discharge Planning Updated by [id number]: Naomi Kumar on 04/02/20 9:[address] CM RECEIVED MESSAGE FROM ALLIE REGARDING ADMISSION TODAY AT [facility] IF ORDERS RECEIVED. HAD CALLED AND LEFT VOICE MAIL MESSAGE FOR ANDRE EARLIER THIS AM AFTER SPEAKING W/ PRIMARY NURSE, JOSE. JOSE WILL CALL DR MARLEY. WILL CONTACT ALLIE [facility] WHEN ORDERS RECEIVED. DCP- Discharge Planning Updated by [id number]: Dunia Kilpatrick on 04/01/20 12:[address] CM met with patient regarding DC needs/plans. Patient is in agreement with interview. Patient is A/O X3. PCP: / . [facility]. DME: patient has ordered an upright walker, privately. Patient states he is independent with ADL's and his Estela, will assist PRN. Emergency contact: Estela Devine () [phone]. Denies use of community resources, denies need for HHS, SNF. Patient request information be sent to [facility] for evaluation. Patient choice for [facility] and DC IMM signed by patient.. Denies hospitalization within past 30 days. CM faxed required information to Andre Lindaliane phone #[phone], , also contacted Andre via phone. Patient voices no other needs at this time. DCPIA - Discharge Planning Initial Assessment Updated by [email or web address]: Dunia Kilpatrick on 04/01/20 1:04 pm * Is the patient Alert and Oriented? Yes * PCP Dr. Marley * [facility]acy [facility] * Preadmission Environment Home with Family * ADLs Independent * Equipment Other * Other Equipment Upright walker * List name and contact numbers for known caregivers / representatives who currently or will assist patient after discharge: Estela Devine () [phone] * Verbal permission to speak to the caregivers and representatives has been obtained from the patient. Yes * Community resources currently utilized None * Please name any agencies selected above. [facility] * Additional services required to return to the preadmission environment? Yes * Can the patient safely return to the preadmission environment? No * Has this patient been hospitalized within the prior 30 days at any hospital? No Coverage Notice Reviewer: [id number] Humza Kilpatrick Notice Issued Date-Time: 04/01/2020 12:31 Notice Type: Patient Choice Letter Notice Delivered To: Patient Relationship to Patient: Self Child Development Specialist Name: Kushal Matute Delivery Method: HAND - Hand Delivered Estephania Days: Prior Verbal Notification: Recipient Understood Notice: Yes Recipient Signature: Yes Med Rec Note Co-signed by Attending: Coverage Notice Comment: Patient Choice for [facility] Reviewer: [id number] Humza Kilpatrick Notice Issued Date-Time: 04/01/2020 12:31 Notice Type: IM Discharge Notice Notice Delivered To: Patient Relationship to Patient: Self Child Development Specialist Name: Kusahl Devine Delivery Method: HAND - Hand Delivered Estephania Days: Prior Verbal Notification: Recipient Understood Notice: Yes Recipient Signature: Yes Med Rec Note Co-signed by Attending: Coverage Notice Comment: DC IMM signed by patient. Last DP export: 04/02/20 2:30 pm Patient Name: ERIKA DEVINE Page [phone] at 1322 All edits/amendments must be made on the electronic document DICTATION DATE: 04/04/20 132 ELECTRICAL LABORATORY TECHNICIAN: GRACIA 04/04/20 1322 RPT#: [id number] [place] DATE:04/02/20 STATUS: DIS IN [facility] [address] [place] [address] END OF REPORT
== END 2020-04-02 17:08 | DRG 689 ==
LOC: D.ER 06:45 → D.M2 10:14
PROVIDERS: Family Medicine; ADMIT Family Medicine; ATTEND Family Medicine
DX: N39.0 Urinary tract infection, site not specified (principal); G93.41 Metabolic encephalopathy; N17.9 Acute kidney failure, unspecified; I50.20 Unspecified systolic (congestive) heart failure; I42.0 Dilated cardiomyopathy; J98.11 Atelectasis; I11.0 Hypertensive heart disease with heart failure; I25.10 Atherosclerotic heart disease of native coronary artery without angina pectoris; G89.4 Chronic pain syndrome; F32.9 Major depressive disorder, single episode, unspecified; E11.9 Type 2 diabetes mellitus without complications; E03.9 Hypothyroidism, unspecified; B96.20 Unspecified Escherichia coli [E. coli] as the cause of diseases classified elsewhere